=== PATIENT | male | born 1965 | race Two or more races ===

== ENCOUNTER 2024-11-19 10:44 | Emergency (ER) | payer OTHER ==
[~2024-11-19] VITALS: Ht 177.8 cm; Wt 80.8 kg
[2024-11-19 10:46] VITALS: O2SAT 99
[2024-11-19 11:59] LABS: PROTHROMBIN TIME 10.9 sec (9.6-11.0)
[2024-11-19 12:00] LABS: CHLORIDE 102 mEq/L (98-107); SODIUM 136 mEq/L (136-145)
[2024-11-19 12:01] LABS: CARBON DIOXIDE 30 mEq/L (21-32)
[2024-11-19 12:06] LABS: CREATININE 0.7 mg/dL (0.6-1.3); GLUCOSE 108 mg/dL (70-105); UREA NITROGEN BLOOD 8 mg/dL (9-23)
[2024-11-19 12:09] LABS: BASOPHILS % 0.2 % (0.0-2.0); DIFFERENTIAL COMMENT 0; EOSINOPHILS % 1.4 % (0.0-5.0); HEMATOCRIT. 34.4 % (42.0-52.0); HEMOGLOBIN. 11.5 g/dL (14.0-18.0); LYMPHOCYTES % 48.4 % (20.0-50.0); MEAN CORPUSCULAR HEMOGLOBIN 34.8 pg (28.0-32.0); MEAN CORPUSCULAR HGB CONC 33.5 g/dL (31.0-37.0); MEAN CORPUSCULAR VOLUME 103.8 fL (80.0-94.0); MEAN PLATELET VOLUME 7.2 fl (7.4-10.4); MONOCYTES % 11.5 % (2.0-8.0); NEUTROPHILS % 38.5 % (40.0-76.0); PLATELET 244 x1000/uL (130-400); RED BLOOD CELL COUNT 3.31 mill/uL (4.7-6.1); RED CELL DISTRIBUTION WIDTH 12.2 % (11.6-14.6); WHITE BLOOD COUNT 2.5 x1000/uL (4.5-11.0)
[2024-11-19 12:15] LABS: ETHANOL BLOOD < 10 mg/dL (<10); TROPONIN I HIGH SENSITIVITY < 4 ng/L (3.0-53)
[2024-11-19] MEDS: IOHEXOL-350 100 ML BOTTLE ONE (14:16)
[2024-11-19 15:15] VITALS: BP 168/81; PULSE 57; RESP 15; TEMP 36.7; O2SAT 99
== END 2024-11-19 15:15 | disposition short-term general hospital (02) ==
LOC: ER 10:44 → EDBEDREQTM 13:33 → EDBEDREQ 13:33 → ER 15:15
DX: I67.82 Cerebral ischemia (principal); R29.810 Facial weakness
CPT/HCPCS: 80048; 80320; 85025; 85610; 84484; 36415; 71045; 70496; 70498; 70450; 93005; 99291; Q9967; 99285; G0480